=== PATIENT | female | born 1970 | race Hispanic/Latino ===

== ENCOUNTER 2017-11-29 09:25 | Emergency (ER) | payer OTHER ==
[~2017-11-29] VITALS: Ht 167.6 cm; Wt 90.7 kg
[~2017-11-29 09:25] MED LIST: GOLYTELY1 PDR PO; MOBIC 15MG15 MG PO; MOTRIN 600 MG600 MG PO; TRAMADOL50 MG PO; ZOLPIDEM TARTRA10 MG PO
[2017-11-29 09:29] VITALS: BP 115/72
== END 2017-11-29 10:27 | disposition admitted as inpatient to this hospital (09) ==
LOC: ERH 09:25
DX: R68.84 Jaw pain (principal)